=== PATIENT | male | born 1965 | race Hispanic/Latino ===

== ENCOUNTER 2018-06-28 08:58 | Emergency (ER) | payer OTHER ==
[2018-06-28] MEDS ORDERED: KETOROLAC 30 MG/ML INJ ONE (09:49)
--- NOTE | 2018-06-28 09:49 | RAD REPORT ---
EXAM DESCRIPTION: CT - Head Brain Wo Cont - 06/28/2018 9:31 am CLINICAL HISTORY: Headache COMPARISON: None. TECHNIQUE: Computed axial tomography of the head was obtained. IV contrast was not requested. All CT scans are performed using dose optimization technique as appropriate and may include automated exposure control or mA/KV adjustment according to patient size. FINDINGS: An intracranial bleed is not seen . The ventricles are normal in caliber. No extra-axial fluid collection is noted. Fluid within the sinuses/ mastoids is not seen. IMPRESSION: No acute intracranial abnormality is seen. If patient's symptoms persist MRI of the bra in would be recommended.
--- NOTE | 2018-06-28 10:50 | ER ---
Nurse's Notes [facility] Name: Salas Wilson Age: 53 yrs Sex: Male : 1965 Arrival Date: 06/28/2018 Time: 09:00 Bed 17 Private MD: Diagnosis: Headache Presentation: 06/28 09:22 Presenting complaint: Patient states: pain to top right side of head x 5 days, also c/o iw right ear pain for a couple days, pain gets worse when he moves his head from side to side and when he bends over, denies fever, denies photophobia or any other visual disturbances. Transition of care: patient was not received from another setting of care. Onset of symptoms was June 23, 2018. Risk Assessment: Do you want to hurt yourself or someone else? Patient reports no desire to harm self or others. Initial Sepsis Screen: Does the patient meet any 2 criteria? No. Patient's initial sepsis screen is negative. Does the patient have a suspected source of infection? No. Patient's initial sepsis screen is negative. Care prior to arrival: None. 09:22 Method Of Arrival: Ambulatory 09:22 Acuity: KEISHA 4 iw Historical: - Allergies: 09:23 No Known Allergies; iw - Home Meds: 09:23 None [Active]; iw - PMHx: 09:23 None; iw - PSHx: 09:23 None; iw - Immunization history:: Adult Immunizations. - Ebola Screening: : Patient negative for fever greater than or equal to 101.5 degrees Fahrenheit, and additional compatible Ebola Virus Disease symptoms Patient denies exposure to infectious person Patient denies travel to an Ebola-affected area in the 21 days before illness onset No symptoms or risks identified at this time. - Social history:: Smoking status: Patient/guardian denies using tobacco. Screenin:35 Abuse screen: Denies threats or abuse. Nutritional screening: No deficits noted. em Tuberculosis screening: No symptoms or risk factors identified. Fall Risk None identified. Assessment: 09:30 General: Appears in no apparent distress. distressed, Behavior is calm, cooperative. em Pain: Complains of pain in top of head Pain currently is 10 out of 10 on a pain scale. Quality of pain is described as pressure, Pain began 5 days ago. Neuro: Level of Consciousness is awake, alert, obeys commands, Oriented to person, place, time, situation, Reports headache Denies weakness blurred vision. Cardiovascular: Capillary refill < 3 seconds Patient's skin is warm and dry. Respiratory: Airway is patent Respiratory effort is even, unlabored, Respiratory pattern is regular, symmetrical. GI: Abdomen is flat, Patient currently denies nausea, vomiting. : No signs and/or symptoms were reported regarding the genitourinary system. Derm: Skin is intact, is healthy with good turgor, Skin is pink, warm \T\ dry. Musculoskeletal: Range of motion: intact in all extremities. 09:45 Reassessment: Patient appears in no apparent distress at this time. Patient and/or iw family updated on plan of care and expected duration. Pain level reassessed. I agree with above assessment by Ian Iqbal LVN. 10:30 Reassessment: Patient appears in no apparent distress at this time. Patient and/or em family updated on plan of care and expected duration. Pain level reassessed. Patient is alert, oriented x 3, equal unlabored respirations, skin warm/dry/pink. Patient denies pain at this time. Patient states feeling better. Patient states symptoms have improved. Vital Signs: 09:23 BP 129 / 81; Pulse 67; Resp 16; Temp 98.2; Pulse Ox 98% on R/A; Weight 74.84 kg; Height iw 5 ft. 8 in. (172.72 cm); 11:00 BP 105 / 79; Pulse 53; Resp 18; Pulse Ox 99% on R/A; Pain 0/10; em 09:23 Body Mass Index 25.09 (74.84 kg, 172.72 cm) ED Course: 09:00 Patient arrived in ED. rg4 09:14 Willian Neff PA is PHCP. jr8 09:14 Skyler Link MD is Attending Physician. jr8 09:23 Triage completed. iw 09:23 Arm band placed on. iw 09:26 Ian Iqbal LVN is Primary Nurse. em 09:30 CT completed. Patient tolerated procedure well. Patient moved to CT via wheelchair. sj Patient moved back from CT. 09:31 CT Head Brain wo Cont In Process Unspecified. EDMS 09:35 Patient has correct armband on for positive identification. Bed in low position. Call em light in reach. Adult w/ patient. 11:00 No provider procedures requiring assistance completed. em 11:02 Patient did not have IV access during this emergency room visit. em Administered Medications: 09:49 Drug: TORadol 60 mg Route: IM; Site: left gluteus; em 10:20 Follow up: Response: No adverse reaction; Pain is decreased em Outcome: 10:50 Discharge ordered by MD. nobles 11:02 Discharged to home ambulatory. em 11:02 Condition: good 11:02 Discharge instructions given to patient, Instructed on discharge instructions, follow up and referral plans. Demonstrated understanding of instructions, follow-up care. 11:03 Patient left the ED. em Signatures: Dispatcher [employer] Soo Graham Edgar, SPECIAL EVENTS PLANNER SPECIAL EVENTS PLANNER Gricelda Gillis RN RN iw Roszak, Josh, PA PA jr8 Davina De La Torre rg4
--- NOTE | 2018-06-28 10:51 | EDPHYS ---
Physician Documentation [facility] Name: Salas Wilson Age: 53 yrs Sex: Male : 1965 Arrival Date: 06/28/2018 Time: 09:00 Bed 17 Private MD: ED Physician Skyler Link HPI: 06/28 10:38 This 53 yrs old Male presents to ER via Ambulatory with complaints of Headache.jr8 10:38 Onset: The symptoms/episode began/occurred acutely, today. Associated signs and jr8 symptoms: The patient has no apparent associated signs or symptoms. Severity of symptoms: At its worst the pain was moderate, in the emergency department the pain is unchanged. Headache History: Denies prior headaches. The symptoms are alleviated by nothing. the symptoms are aggravated by movement. The patient has not experienced similar symptoms in the past. The patient has not recently seen a physician. Historical: - Allergies: 09:23 No Known Allergies; iw - Home Meds: :23 None [Active]; iw - PMHx: :23 None; iw - PSHx: 09:23 None; iw - Immunization history:: Adult Immunizations. - Ebola Screening: : Patient negative for fever greater than or equal to 101.5 degrees Fahrenheit, and additional compatible Ebola Virus Disease symptoms Patient denies exposure to infectious person Patient denies travel to an Ebola-affected area in the 21 days before illness onset No symptoms or risks identified at this time. - Social history:: Smoking status: Patient/guardian denies using tobacco. ROS: 10:38 Eyes: Negative for injury, pain, redness, and discharge, ENT: Negative for injury, jr8 pain, and discharge, Neck: Negative for injury, pain, and swelling, Cardiovascular: Negative for chest pain, palpitations, and edema, Respiratory: Negative for shortness of breath, cough, wheezing, and pleuritic chest pain, Abdomen/GI: Negative for abdominal pain, nausea, vomiting, diarrhea, and constipation, Back: Negative for injury and pain, MS/Extremity: Negative for injury and deformity, Skin: Negative for injury, rash, and discoloration. 10:38 Neuro: Positive for headache, Negative for altered mental status, dizziness, gait disturbance, hearing loss, loss of consciousness, numbness, seizure activity, speech changes, syncope, near syncope, tingling, tinnitus, tremor, visual changes, weakness. Exam: 10:38 Head/Face: Normocephalic, atraumatic. Eyes: Pupils equal round and reactive to light, jr8 extra-ocular motions intact. Lids and lashes normal. Conjunctiva and sclera are non-icteric and not injected. Cornea within normal limits. Periorbital areas with no swelling, redness, or edema. ENT: Nares patent. No nasal discharge, no septal abnormalities noted. Tympanic membranes are normal and external auditory canals are clear. Oropharynx with no redness, swelling, or masses, exudates, or evidence of obstruction, uvula midline. Mucous membranes moist. Neck: Trachea midline, no thyromegaly or masses palpated, and no cervical lymphadenopathy. Supple, full range of motion without nuchal rigidity, or vertebral point tenderness. No Meningismus. Cardiovascular: Regular rate and rhythm with a normal S1 and S2. No gallops, murmurs, or rubs. Normal PMI, no JVD. No pulse deficits. Respiratory: Lungs have equal breath sounds bilaterally, clear to auscultation and percussion. No rales, rhonchi or wheezes noted. No increased work of breathing, no retractions or nasal flaring. Abdomen/GI: Soft, non-tender, with normal bowel sounds. No distension or tympany. No guarding or rebound. No evidence of tenderness throughout. Back: No spinal tenderness. No costovertebral tenderness. Full range of motion. Skin: Warm, dry with normal turgor. Normal color with no rashes, no lesions, and no evidence of cellulitis. MS/ Extremity: Pulses equal, no cyanosis. Neurovascular intact. Full, normal range of motion. Neuro: Awake and alert, GCS 15, oriented to person, place, time, and situation. Cranial nerves II-XII grossly intact. Motor strength 5/5 in all extremities. Sensory grossly intact. Cerebellar exam normal. Normal gait. Vital Signs: 09:23 BP 129 / 81; Pulse 67; Resp 16; Temp 98.2; Pulse Ox 98% on R/A; Weight 74.84 kg; Height iw 5 ft. 8 in. (172.72 cm); 11:00 BP 105 / 79; Pulse 53; Resp 18; Pulse Ox 99% on R/A; Pain 0/10; em 09:23 Body Mass Index 25.09 (74.84 kg, 172.72 cm) MDM: 09:14 Patient medically screened. jr8 10:49 Data reviewed: vital signs, nurses notes, radiologic studies, CT scan, and as a result, jr8 I will discharge patient. Data interpreted: Pulse oximetry: on room air is 98 %. Interpretation: normal. Counseling: I had a detailed discussion with the patient and/or guardian regarding: the historical points, exam findings, and any diagnostic results supporting the discharge/admit diagnosis, radiology results, the need for outpatient follow up, a family practitioner, to return to the emergency department if symptoms worsen or persist or if there are any questions or concerns that arise at home. Response to treatment: the patient's symptoms have markedly improved after treatment. 06/28 09:21 Order name: CT Head Brain wo Cont; Complete Time: 09:56 jr8 Administered Medications: 09:49 Drug: TORadol 60 mg Route: IM; Site: left gluteus; em 10:20 Follow up: Response: No adverse reaction; Pain is decreased em Disposition: 06/29 09:10 Co-signature as Attending Physician, Skyler Link MD. Disposition: 06/28/18 10:50 Discharged to Home. Impression: Headache. - Condition is Stable. - Discharge Instructions: General Headache Without Cause, Migraine Headache. - Medication Reconciliation Form, Thank You Letter, Antibiotic Education, Prescription Opioid Use form. - Follow up: Private Physician; When: As needed; Reason: Recheck today's complaints, Continuance of care, Re-evaluation by your physician. - Problem is new. - Symptoms have improved. Signatures: Dispatcher [employer] EDRI Ian Iqbal, HOUSEKEEPER AND LAUNDRY ASSISTANT HOUSEKEEPER AND LAUNDRY ASSISTANT em Gricelda Rojas, [place] RN Willian Neff PA PA jr8 Skyler Link MD MD Corrections: (The following items were deleted from the chart) 06/28 11:03 10:50 06/28/2018 10:50 Discharged to Home. Impression: Headache. Condition is Stable. em Forms are Medication Reconciliation Form, Thank You Letter, Antibiotic Education, Prescription Opioid Use. Follow up: Private Physician; When: As needed; Reason: Recheck today's complaints, Continuance of care, Re-evaluation by your physician. Problem is new. Symptoms have improved. jr8
[2018-06-28 11:07] VITALS: TEMP 98.2
[2018-06-28 11:09] VITALS: BP 105/79; O2SAT 99
== END 2018-06-28 11:03 | disposition home or self-care (01) ==
LOC: ER 08:58
DX: R51 Headache (principal)
CPT/HCPCS: 70450; 96372; 99284